=== PATIENT | male | born 1945 | race Caucasian/White ===

== ENCOUNTER 2019-05-13 00:50 | Observation (INO) ==
[2019-05-13 01:32] LABS: Basophils % 0.4 %; Eosinophils # 0.4 K/mcL (0.0-0.6); Eosinophils % 4.3 %; Hematocrit 36.2 % (37.5-50.1); Hemoglobin 11.9 g/dL (12.9-16.9); Immature Granulocytes % 0.2 % (0-4); Lymphocytes # 1.6 K/mcL (0.6-4.6); Lymphocytes % 18.8 %; Mean Corpuscular HGB Conc 32.9 g/dL (31.6-35.5); Mean Corpuscular Hemoglobin 30.1 pg (28.0-33.3); Mean Corpuscular Volume 91.4 fL (83.0-100.0); Mean Platelet Volume 9.3 fL (9.4-12.4); Monocytes # 0.6 K/mcL (0.0-1.3); Monocytes % 7.1 %; Neutrophils # 5.7 K/mcL (1.6-8.9); Platelet Count 243 K/mcL (140-400); Red Blood Count 3.96 M/mcL (4.19-5.50); Red Cell Distribution Width 12.5 % (11.5-14.5); Segmented Neutrophils % 69.2 %; White Blood Count 8.3 K/mcL (4.3-11.1)
[2019-05-13 01:55] LABS: Alanine Aminotransferase 8 Units/L (7-52); Albumin 3.3 g/dL (3.5-5.7); Albumin/Globulin Ratio 1.2 (1.1-2.2); Alkaline Phosphatase 77 Units/L (34-104); Aspartate Amino Transferase 11 Units/L (13-39); BUN/Creatinine Ratio 10 (6-26); Bilirubin,Total 0.4 mg/dL (0.3-1.0); Blood Urea Nitrogen 16 mg/dL (8-23); Calcium 7.7 mg/dL (8.6-10.3); Carbon Dioxide 30 mEq/L (23-29); Chloride 102 mEq/L (98-107); Globulin 2.7 g/dL (2.4-3.5); Glucose 136 mg/dL (70-105); Osmolality,Calculated 295 (280-300); Potassium 2.7 mEq/L (3.5-5.1); Sodium 141 mEq/L (136-145); Troponin I < 0.03 ng/mL (< 0.04); eGFR For African Americans 54 (> 60); eGFR For Non-African Americans 45 (> 60)
[2019-05-13] MEDS ORDERED: *HR* Dextrose 50 % in Water (Syg) 50 ML SYRINGE IVP PRN (02:21)
[2019-05-13] MEDS ORDERED: D5% in Water 1,000 ML IVC PRN (02:21)
[2019-05-13] MEDS ORDERED: Dextrose Gel 15 GM/37.5 ML TUBE PO PRN ×2 (02:21)
[2019-05-13] MEDS: Potassium Chloride Elixir 20 MEQ/15 ML UDC PO SCH ×3 (03:21→20:32)
[2019-05-13] MEDS ORDERED: *HR* LORazepam 2 MG/ML VIAL IVP PRN (04:13)
[2019-05-13] MEDS ORDERED: tiZANidine 4 MG TABLET PO PRN (04:13)
[2019-05-13] MEDS ORDERED: Naloxone 0.4 MG/ML INJ IVP PRN (04:40)
[2019-05-13] MEDS ORDERED: Acetaminophen 325 MG TABLET PO PRN (04:47)
[2019-05-13] MEDS ORDERED: traMADol 50 MG TABLET PO PRN (04:47)
[2019-05-13] MEDS ORDERED: 0.9 % Sodium Chloride 1,000 ML IVC SCH (05:00)
--- NOTE | 2019-05-13 05:11 | Internal Med History&Physical ---
Date of Encounter: 05/13/19 Time of Encounter: 03:50 Internal Medicine - H&P: HPI Chief complaint: Abnormal labs Admitted From: Hospital to Hospital Transfer Plans for Post Hospital Care: Home History of present illness: Mr. Shaffer is a 73 year old male w/PMH of CHF, DM, HLD, HTN, and CKD presents from [facility] w/troponin that they reported as abnormal as well as other lab values. On admission, labs at [facility] showed Hgb of 11.9, potassium of 2.7, creatinine of 1.54, GFR of 45, glucose of 136, calcium of 7.7, and BNP of 112. Initial troponin here was <0.03. Pt. also reports that he is under a severe amount of stress d/t taking care of his with Alzheimer's disease. Pt. became tearful during exam stating that he had almost given up when his PCP prescribed him something for anxiety. Pt. reports bloody stool when he takes aspirin for his nerve pain r/t previous shingles but denies any recent illness, fever, chills, nausea, vomiting, headache, changes in vision, abdominal pain, diarrhea, constipation, numbness, tingling, dizziness, lightheadedness, pre- syncope, or syncope. Pt. is in need of SW consult to assess for possible help at home d/t caregiver burnout from caring for his full-time. Past Med Surg Social Fam HX - Past Medical History Source: patient, old records reviewed Medical history: CHF, diabetes, hyperlipidemia, hypertension, renal disease Additional medical history: anemia, coloitis, vit. D deficiency, obesity. Psychiatric history: anxiety, depression - Past Surgical History Additional surgical history: bowel surgery/blockage?? - Social History Smoking Status: Former smoker Smokeless Tobacco Status: Yes Alcohol use: none Drug use: none Occupational status: previously employed Current living situation: Home, With Family Activity Level: Independent ambulation Recent Out of Country Travel Within the Last 8 Weeks: No Exposure or Possible Exposure to Illness During Travel: No - Family History Father Race: Family Member Ethnicity: Non- Living Status: Age at : 70 Cause of : Bone cancer Hx Family Cancer: Yes (Bone) Hx Family Genitourinary Disorders: Yes (Gout) Hx Family Psychosocial Disorders: Yes (Alcoholic) Mother Race: Family Member Ethnicity: Non- Living Status: Age at : 67 Cause of : CAD Hx Family Cardiac Disorders: Yes (CAD, PVCs) Brother Race: Family Member Ethnicity: Non- Living Status: Age at : 68 Cause of : Bone cancer Hx Family Cancer: Yes (Bone) Sister Race: Family Member Ethnicity: Non- Living Status: Still Living Hx Family Medical Disorders: No Internal Medicine - H&P: Meds Cholecalciferol (Vitamin D3) [Vitamin D3] 10,000 unit PO QWEEK 11/08/18 [History] Escitalopram [Lexapro] 20 mg PO DAILY 11/08/18 [History] HYDROcodone/Acet 5/325 mg [Dickey 5-325 mg] 1 tab PO TID 11/08/18 [History] Metoprolol Succinate [Toprol Xl] 100 mg PO BID 11/08/18 [History] Potassium Chloride [K-Tab ER] 20 meq PO DAILY 11/08/18 [History] Sennosides [Senna] 8.6 mg PO DAILY 11/08/18 [History] Tizanidine HCl [Zanaflex] 2 - 4 mg PO TID PRN 11/08/18 [History] glipiZIDE [Glipizide] 10 mg PO BID 11/08/18 [History] quiNIDine sulfate [Quinidine Sulfate] 200 mg PO TID 11/08/18 [History] Furosemide [Lasix] 40 mg PO DAILY #30 tablet 11/09/18 [Rx] Allergy/AdvReac Type Severity Reaction Status Date / Time No Known Allergies Allergy Verified 11/06/18 04:36 All Systems PM: A 10-system review of systems was performed and is negative for pertinent findings except as documented above in the HPI. - Constitutional Constitutional: as per HPI, no chills, no fever(s), no night sweats - EENT Eyes: as per HPI, no change in vision, no discharge, no pain, no photophobia Ears: as per HPI, no ear discharge, no ear pain, no tinnitus Nose, mouth and throat: as per HPI, no dysphagia, no nasal discharge, no neck pain, no sore throat - Breasts Breasts: as per HPI - Cardiovascular Cardiovascular ROS IM: no chest pain, no diaphoresis, no dyspnea, no lightheadedness, no palpitations, no syncope - Respiratory Respiratory: no cough, no dyspnea, no wheezing, no excessive phlegm production - Gastrointestinal Gastrointestinal: no abdominal pain, no diarrhea, no hematemesis, no hematochezia, no melena, no nausea, no vomiting - Genitourinary Genitourinary ROS male: as per HPI - Musculoskeletal Musculoskeletal ROS IM: no numbness, no tingling - Integumentary Integumentary IM: no rash, no unusual bruising - Neurological Neurological ROS: no confusion, no convulsions, no focal weakness, no numbness, no tingling, no tremor(s) - Psychiatric Psychiatric: as per HPI, 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 Patient became tearful during exam after discussing taking care of his with Alzheimer's full-time. Pt. reports feeling severe stress and being overwhelmed at times. Discussed Hospice care and possible respite periods which would help him to get much needed rest. Pt. denies any other symptoms or complaints. VS: 97.4F temp, HR 55, RR 16, BP 156/72, SPO2 94% on room air. - Head Head exam: Present: atraumatic, normocephalic - Eye Eye exam: Present: PERRL, conjuntiva pink, sclera anicteric Pupils: Present: PERRL - ENT ENT exam: Present: normal exam - Neck Neck exam general surgery: Present: normal inspection, supple, trachea midline. Absent: lymphadenopathy - Respiratory Respiratory exam: Present: CTAB. Absent: accessory muscle use, rales, rhonchi, wheezes - Cardiovascular Cardiovascular exam: Present: RRR, +S1, +S2. Absent: diastolic murmur, gallop, rubs, systolic murmur - GI/Abdominal GI/Abdominal exam: Present: normal bowel sounds, soft, no peritoneal signs. Absent: distended, tenderness - Rectal Rectal exam: Present: deferred - Additional comments: exam deferred. - Extremities Exam Extremities exam: Present: pedal edema, warm, radial pulses palpable and symmetrical. Absent: calf tenderness, cyanotic - Back Exam Back exam: Present: normal inspection - Neurological Exam Neurological exam: Present: alert, CN II-XII intact, oriented X3, no focal deficits. Absent: pronater drift, facial droop, speech deficit - Psychiatric Psychiatric exam: Present: anxious - Skin Skin exam: Present: dry, intact Internal Med - H&P Results - Labs CBC & Chem 7: 05/13/19 01:20 05/13/19 01:20 Labs: Short CBC 05/13/19 Range/Units 01:20 WBC 8.3 (4.3-11.1) K/mcL Hgb 11.9 L (12.9-16.9) g/dL Hct 36.2 L (37.5-50.1) % Plt Count 243 (140-400) K/mcL Neutrophils # 5.7 (1.6-8.9) K/mcL BMP 05/13/19 01:20 Sodium 141 Potassium 2.7 L Chloride 102 Carbon Dioxide 30 H BUN 16 Creatinine 1.54 H Glucose 136 H Calcium 7.7 L Cardiac Enzymes 05/13/19 Range/Units 01:20 Troponin I < 0.03 (< 0.04) ng/mL Liver Function 05/13/19 Range/Units 01:20 Total Bilirubin 0.4 (0.3-1.0) mg/dL AST 11 L (13-39) Units/L ALT 8 (7-52) Units/L Alkaline Phosphatase 77 (34-104) Units/L Albumin 3.3 L (3.5-5.7) g/dL - Assessment and Plan (1) Abnormal laboratory test Current Visit: Yes Status: Acute Assessment and plan: Acute abnormal lab test results. Patient was transferred from [facility]. On admission, labs at [facility] showed Hgb of 11.9, potassium of 2.7, creatinine of 1.54, GFR of 45, glucose of 136, calcium of 7.7, and BNP of 112. Initial troponin here was <0.03. Trending. Monitoring pts. f/u labs for improvement. On admission, temp 97.6. Respiratory infection panel ordered. Will supplement calcium and potassium. Monitoring Hgb d/t pts. report of bloody stools intermittently. Fecal hemoccult ordered. Patient is moderate risk for further morbidity and complications d/t current abnormal labs and electrolyte imbalances; hx of health risk factors including DM, HTN, HLD, CKD; and severe caregiver burnout r/t caring for his with Alzheimer's. Observation. (2) Hypokalemia Current Visit: Yes Status: Acute Assessment and plan: Acute hypokalemia w/potassium of 2.7 on admission. Continuous cardiac telemetry. Will supplement 40 mEq elixir BID. Patient states he cannot take potassium in pill form. Monitor f/u labs. (3) Hypocalcemia Current Visit: Yes Status: Acute Assessment and plan: Acute hypocalcemia w/calcium of 7.7 on admission. Will supplement. (4) Burnout of caregiver Current Visit: Yes Status: Acute Assessment and plan: Acute caregiver burnout. Pt. reports that he is under a severe amount of stress d/t taking care of his with Alzheimer's disease. Pt. became tearful during exam stating that he had almost given up when his PCP prescribed him something for anxiety. Patient needs assistance at home. SW consult ordered. IVP Ativan PRN for anxiety. (5) CHF (congestive heart failure) Current Visit: Yes Status: Chronic Assessment and plan: Hx of chronic diastiolic CHF. BNP 112 on admission. Non-pitting pedal edema bilaterally on exam. Monitor I&O and daily weight. 1.5L daily fluid restriction. Continuous cardiac telemetry. Qualifiers: Heart failure type: diastolic Heart failure chronicity: acute on chronic Qualified Code(s): I50.33 - Acute on chronic diastolic (congestive) heart failure (6) CKD (chronic kidney disease) stage 3, GFR 30-59 ml/min Current Visit: Yes Status: Chronic Assessment and plan: Hx of CKD. Currently stage 3 w/GFR of 45 and creatinine 1.54. Pt. has hx of CHF. Will use IV fluids judiciously if warranted and avoid nephrotoxins. Monitor I&O and daily weight. (7) HTN (hypertension) Current Visit: Yes Status: Chronic Assessment and plan: Hx of chronic HTN. Monitor patient and vital signs. Continue patient's metoprolol. Qualifiers: Hypertension type: essential hypertension Qualified Code(s): I10 - Essential (primary) hypertension (8) HLD (hyperlipidemia) Current Visit: Yes Status: Chronic Assessment and plan: Hx of chronic HLD. Lipid panel in a.m. labs. Patient not currently on statin. Consider adding Lipitor to medication based on lipid panel results. Qualifiers: Hyperlipidemia type: pure hypercholesterolemia Qualified Code(s): E78.00 - Pure hypercholesterolemia, unspecified; E78.0 - Pure hypercholesterolemia (9) Diabetes Current Visit: Yes Status: Chronic Assessment and plan: Hx of chronic DM controlled w/oral antihyperglycemic mediations. Hold oral medication and administer low-dose correction sliding scale insulin with hypogly cemic protocol. A1c in a.m. labs. Qualifiers: Diabetes mellitus type: type 2 Diabetes mellitus alf insulin use: without swine extension field specialist use Diabetes mellitus complication status: with kidney complications Diabetes mellitus complication detail: with chronic kidney disease Chronic kidney disease stage: stage 3 (moderate) Qualified Code(s): E11.22 - Type 2 diabetes mellitus with diabetic chronic kidney disease; N18.3 - Chronic kidney disease, stage 3 (moderate) (10) Anemia Current Visit: Yes Status: Chronic Assessment and plan: Hx of chronic anemia. Hgb 11.9 on admission. Patient reports bloody stools when he takes ASA. Monitor output and f/u labs. Qualifiers: Anemia type: due to chronic kidney disease Chronic kidney disease stage: stage 3 (moderate) Qualified Code(s): N18.3 - Chronic kidney disease, stage 3 (moderate); D63.1 - Anemia in chronic kidney disease (11) DVT prophylaxis Current Visit: Yes Status: Acute Assessment and plan: SCDs on bilateral LEs for DVT prophylaxis due to drop in hemoglobin. - Time Spent With Patient Total time spent is greater than 50% in coordination of care (as documented) at patient's floor/unit and/or counseling patient: Greater than 35 minutes
[2019-05-13 06:53] LABS: Adenovirus Not Detected (Not Detect)
[2019-05-13 06:54] LABS: Bordetella Pertussis Not Detected (Not Detect); Chlamydophila pneumoniae Not Detected (Not Detect); Coronavirus 229E Not Detected (Not Detect); Coronavirus HKU1 Not Detected (Not Detect); Coronavirus NL63 Not Detected (Not Detect); Coronavirus OC43 Not Detected (Not Detect); Human Metapneumovirus Not Detected (Not Detect); Human Rhinovirus/Enterovirus Not Detected (Not Detect); Influenza A Subtype 2009 H1 Not Detected (Not Detect); Influenza A Untypeable Not Detected (Not Detect); Influenza B Not Detected (Not Detect); Mycoplasma pneumoniae Not Detected (Not Detect); Parainfluenza Virus 1 Not Detected (Not Detect); Parainfluenza Virus 2 Not Detected (Not Detect); Parainfluenza Virus 3 Not Detected (Not Detect); Parainfluenza Virus 4 Not Detected (Not Detect); Respiratory Syncytial Virus Not Detected (Not Detect)
[2019-05-13] MEDS: Insulin LISPRO 300 UNITS/3 ML VIAL SQ SCH ×4 (08:06→20:32)
[2019-05-13] MEDS: QUINIDINE SULFATE 200 MG PO SCH ×3 (08:07→20:32)
[2019-05-13] MEDS: Furosemide 40 MG TABLET PO SCH (08:34)
[2019-05-13] MEDS: Metoprolol XL (24 HR) Succ 50 MG TAB.ER.24H PO SCH ×2 (08:39→20:32)
[2019-05-13 08:58] LABS: Estimated Average Glucose 151 mg/dl
--- NOTE | 2019-05-13 15:46 | Event Note ---
Date of Encounter: 05/13/19 Time of Encounter: 15:44 Associated examined earlier by hospitalist services. Currently patient denies any chest pain or shortness of breath. I did discuss case with school social worker who will see the patient concerning caregiver burnout. Nursing also reports that son stated patient has not been taking his potassium home because his pills are too large. We will continue to monitor potassium
[2019-05-13] MEDS: *HR* HYDROcodone/Acet 5/325 mg TABLET PO SCH ×2 (15:50→20:31)
[2019-05-14 01:20] LABS: Hematocrit 36.6 % (37.5-50.1); Hemoglobin 11.8 g/dL (12.9-16.9); Mean Corpuscular HGB Conc 32.2 g/dL (31.6-35.5); Mean Corpuscular Hemoglobin 29.5 pg (28.0-33.3); Mean Corpuscular Volume 91.5 fL (83.0-100.0); Mean Platelet Volume 9.6 fL (9.4-12.4); Platelet Count 250 K/mcL (140-400); Red Cell Distribution Width 12.7 % (11.5-14.5); White Blood Count 8.4 K/mcL (4.3-11.1)
[2019-05-14 01:40] LABS: Calcium 8.5 mg/dL (8.6-10.3); Chol/HDL Ratio 6.6 (0-4.9); Magnesium 1.8 mg/dL (1.6-2.6)
[2019-05-14] MEDS: Insulin LISPRO 300 UNITS/3 ML VIAL SQ SCH ×4 (09:21→20:35)
[2019-05-14] MEDS: Furosemide 40 MG TABLET PO SCH (09:29)
[2019-05-14] MEDS: QUINIDINE SULFATE 200 MG PO SCH ×3 (09:29→20:40)
[2019-05-14] MEDS: Potassium Chloride Elixir 20 MEQ/15 ML UDC PO SCH ×2 (09:29→20:40)
[2019-05-14] MEDS: Metoprolol XL (24 HR) Succ 50 MG TAB.ER.24H PO SCH ×2 (09:29→20:39)
[2019-05-14] MEDS: *HR* HYDROcodone/Acet 5/325 mg TABLET PO SCH ×3 (09:40→20:39)
[2019-05-14] MEDS: Potassium Chloride 20 MEQ, Lidocaine 1% 2 ML in D5% in Water 250 ML IVPB ONE ×2 (13:37→13:44)
--- NOTE | 2019-05-14 15:02 | Internal Med Progress Note ---
Hospitalist Progress Note - Encounter Date of Encounter: 05/14/19 Time of Encounter: 14:59 - Subjective Interval History: Patient was seen and examined at bedside. Patient is very teary-eyed cries during assessment. Expresses his concern for his who has Alzheimer's he feels very overwhelmed at home. Denies any suicidal or homicidal ideations. Di scussed treatment plan with the patient which includes continuation of potassium replacement and monitoring potassium level. Patient verbalizes understanding - Exam Vitals: Temp Pulse Resp BP Pulse Ox 97.9 F 84 16 131/57 94 05/14/19 11:37 05/14/19 11:37 05/14/19 11:37 05/14/19 11:37 05/14/19 11:37 Exam: Skin: Free of rash and discoloration. Eyes: Sclera is white. There is no discharge from eyes. ENMT: Oral/pharyngeal mucosa is normal in appearance. There is no discharge from nose or ears. Respiratory: Normal breath sounds with no crackles and wheezes bilaterally. CV: Heart is regular with no gallop or murmur. +1 edema to lower extremities bilaterally GI: Abdomen is flat and soft with no palpable mass or visceromegaly. : There is no tenderness in patient's flanks bilaterally. Neuro exam: He has good strength in upper and lower extremities. He has normal eye movements. Psychiatric: He has normal affect. His thought process is appropriate to the situation. - Assessment and Plan (1) CHF (congestive heart failure) Current Visit: Yes Status: Chronic Assessment and Plan: Hx of chronic diastiolic CHF. BNP 112 on admission. Non-pitting pedal edema bilaterally on exam. Monitor I&O and daily weight. 1.5L daily fluid restriction. Continuous cardiac telemetry. 05/14 Continue with fluid restriction as well as Lasix Monitor intake and output daily weights (2) DVT prophylaxis Current Visit: Yes Status: Acute Assessment and Plan: SCDs on bilateral LEs for DVT prophylaxis due to drop in hemoglobin. (3) CKD (chronic kidney disease) stage 3, GFR 30-59 ml/min Current Visit: Yes Status: Chronic Assessment and Plan: Hx of CKD. Currently stage 3 w/GFR of 45 and creatinine 1.54. Pt. has hx of CHF. Will use IV fluids judiciously if warranted and avoid nephrotoxins. Monitor I&O and daily weight. 05/14 Currently appears to be stable at this time we will continue to monitor and avoid nephrotoxins (4) HTN (hypertension) Current Visit: Yes Status: Chronic Assessment and Plan: Hx of chronic HTN. Monitor patient and vital signs. Continue patient's metoprolol. (5) HLD (hyperlipidemia) Current Visit: Yes Status: Chronic Assessment and Plan: Hx of chronic HLD. Lipid panel in a.m. labs. Patient not currently on statin. Consider adding Lipitor to medication based on lipid panel results. (6) Hypokalemia Current Visit: Yes Status: Acute Assessment and Plan: Acute hypokalemia w/potassium of 2.7 on admission. Continuous cardiac telemetry. Will supplement 40 mEq elixir BID. Patient states he cannot take potassium in pill form. Monitor f/u labs. 05/14 Patient does admit to noncompliance with medications because he feels the pills are too large to take. We will continue to replace potassium. This a.m. it was 3. We will continue to monitor (7) Diabetes Current Visit: Yes Status: Chronic Assessment and Plan: Hx of chronic DM controlled w/oral antihyperglycemic mediations. Hold oral medication and administer low-dose correction sliding scale insulin with hy poglycemic protocol. Hemoglobin A1c is 6.9. (8) Hypocalcemia Current Visit: Yes Status: Acute Assessment and Plan: Acute hypocalcemia w/calcium of 7.7 on admission. Will supplement.-Improving we will continue to monitor (9) Anemia Current Visit: Yes Status: Chronic Assessment and Plan: Hx of chronic anemia. Hgb 11.9 on admission. Patient reports bloody stools when he takes ASA. Monitor output and f/u labs. -Continues to be stable today 11.8 we will continue to monitor (10) Burnout of caregiver Current Visit: Yes Status: Acute Assessment and Plan: Acute caregiver burnout. Pt. reports that he is under a severe amount of stress d/t taking care of his with Alzheimer's disease. Pt. became tearful during exam stating that he had almost given up when his PCP prescribed him something for anxiety. Patient needs assistance at home. SW consult ordered. IVP Ativan PRN for anxiety. 05/14 She continues to be very emotional and tearful concerning care of his . States that he is the only caregiver and that he gets very little sleep. technical services manager has been consulted and has provided literature concerning community support He states that his PCP is attempting to assist him with home health se rvices. (11) Abnormal laboratory test Current Visit: Yes Status: Acute Assessment and Plan: Acute abnormal lab test results. Patient was transferred from [facility] w/elevated troponin. On admission, labs at [facility] showed Hgb of 11.9, potassium of 2.7, creatinine of 1.54, GFR of 45, glucose of 136, calcium of 7.7, and BNP of 112. Initial troponin here was <0.03. Trending. Monitoring pts. f/u labs for impro vement. On admission, temp 97.6. Respiratory infection panel ordered. Will supplement calcium and potassium. Monitoring Hgb d/t pts. report of bloody stools intermittently. Fecal hemoccult ordered. Patient is moderate risk for further morbidity and complications d/t current abnormal labs and electrolyte imbalances; hx of health risk factors including DM, HTN, HLD, CKD; and severe caregiver burnout r/t caring for his with Alzheimer's. Observation. 05/14 Troponins have been flat adynamic continue to replace potassium and monitor rest of electrolytes - Time Spent with Patient Total time spent is greater than 50% in coordination of care (as documented) at patient's floor/unit and/or counseling patient: Internal Medicine: Result - Labs CBC & Chem 7: 05/14/19 00:34 05/14/19 00:34 Labs: Short CBC 05/14/19 Range/Units 00:34 WBC 8.4 (4.3-11.1) K/mcL Hgb 11.8 L (12.9-16.9) g/dL Hct 36.6 L (37.5-50.1) % Plt Count 250 (140-400) K/mcL BMP 05/14/19 00:34 Sodium 139 Potassium 3.0 L Chloride 101 Carbon Dioxide 30 H BUN 15 Creatinine 1.50 H Glucose 146 H Calcium 8.5 L Cardiac Enzymes 05/13/19 Range/Units 21:08 Troponin I < 0.03 (< 0.04) ng/mL Consult Discharge Plan - Plan Referrals: NONE,PCP [Primary Care Provider] - (1) CHF (congestive heart failure) Qualifiers: Heart failure type: diastolic Heart failure chronicity: acute on chronic Qualified Code(s): I50.33 - Acute on chronic diastolic (congestive) heart failure (4) HTN (hypertension) Qualifiers: Hypertension type: essential hypertension Qualified Code(s): I10 - Essential (primary) hypertension (5) HLD (hyperlipidemia) Qualifiers: Hyperlipidemia type: pure hypercholesterolemia Qualified Code(s): E78.00 - Pure hypercholesterolemia, unspecified; E78.0 - Pure hypercholesterolemia (7) Diabetes Qualifiers: Diabetes mellitus type: type 2 Diabetes mellitus fpc insulin use: without bed bug exterminator use Diabetes mellitus complication status: with kidney complications Diabetes mellitus complication detail: with chronic kidney disease Chronic kidney disease stage: stage 3 (moderate) Qualified Code(s): E11.22 - Type 2 diabetes mellitus with diabetic chronic kidney disease; N18.3 - Chronic kidney disease, stage 3 (moderate) (9) Anemia Qualifiers: Anemia type: due to chronic kidney disease Chronic kidney disease stage: stage 3 (moderate) Qualified Code(s): N18.3 - Chronic kidney disease, stage 3 (moderate); D63.1 - Anemia in chronic kidney disease
[2019-05-14 17:03] LABS: Calcium 8.5 mg/dL (8.6-10.3); Potassium 3.3 mEq/L (3.5-5.1)
[2019-05-15 05:48] LABS: Hematocrit 36.7 % (37.5-50.1); Mean Corpuscular HGB Conc 32.7 g/dL (31.6-35.5); Mean Corpuscular Hemoglobin 30.5 pg (28.0-33.3); Mean Corpuscular Volume 93.1 fL (83.0-100.0); Mean Platelet Volume 9.3 fL (9.4-12.4); Platelet Count 248 K/mcL (140-400); Red Blood Count 3.94 M/mcL (4.19-5.50); Red Cell Distribution Width 12.5 % (11.5-14.5); White Blood Count 7.8 K/mcL (4.3-11.1)
[2019-05-15 06:05] LABS: BUN/Creatinine Ratio 12 (6-26); Blood Urea Nitrogen 16 mg/dL (8-23); Calcium 8.7 mg/dL (8.6-10.3); Carbon Dioxide 32 mEq/L (23-29); Chloride 101 mEq/L (98-107); Glucose 143 mg/dL (70-105); Osmolality,Calculated 290 (280-300); Potassium 3.6 mEq/L (3.5-5.1); Sodium 138 mEq/L (136-145); eGFR For African Americans > 60 (> 60); eGFR For Non-African Americans 51 (> 60)
[2019-05-15 07:44] VITALS: BP 146/71
[2019-05-15] MEDS: Insulin LISPRO 300 UNITS/3 ML VIAL SQ SCH (08:21)
[2019-05-15] MEDS: Potassium Chloride Elixir 20 MEQ/15 ML UDC PO SCH (08:23)
[2019-05-15] MEDS: Furosemide 40 MG TABLET PO SCH (08:23)
[2019-05-15] MEDS: Metoprolol XL (24 HR) Succ 50 MG TAB.ER.24H PO SCH (08:23)
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
[2019-05-15] MEDS: QUINIDINE SULFATE 200 MG PO SCH (09:59)
[2019-05-15] MEDS: *HR* HYDROcodone/Acet 5/325 mg TABLET PO SCH (10:02)
== END 2019-05-15 11:10 | disposition home or self-care (01) ==
LOC: 3BNU
PROVIDERS: ADMIT Internal Medicine; ATTEND Internal Medicine